=== PATIENT | female | born 1980 | race Caucasian/White ===

== ENCOUNTER 2018-10-29 11:49 | Emergency (ER) | payer MEDICAID ==
[2018-10-29 11:57] VITALS: BP 107/79
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
[2018-10-29] MEDS ORDERED: CEPHALEXIN 500 MG CAP PO ONE (12:27)
== END 2018-10-29 12:55 | disposition home or self-care (01) ==
DX: L08.9 Local infection of the skin and subcutaneous tissue, unspecified (principal); T81.33XA Disruption of traumatic injury wound repair, initial encounter

== ENCOUNTER 2018-10-31 15:15 | Emergency (ER) | payer MEDICAID ==
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
[2018-10-31 15:23] VITALS: BP 117/75
== END 2018-10-31 16:01 | disposition home or self-care (01) ==
DX: Z48.00 Encounter for change or removal of nonsurgical wound dressing (principal); S01.81XD Laceration without foreign body of other part of head, subsequent encounter; Z87.891 Personal history of nicotine dependence; Z88.0 Allergy status to penicillin